=== PATIENT | male | born 1980 | race Hispanic/Latino ===

== ENCOUNTER 2017-11-14 10:37 | Day surgery (SDC) | payer OTHER ==
[~2017-11-14 10:37] MED LIST: ANCEF/STERILE WATER 2 GM/20 ML IV NR
--- NOTE | 2017-11-14 12:20 | Anesthesia Consultation ---
Anesthesia Consult and Med Hx - Airway Anesthetic Teeth Evaluation: Good ROM Head & Neck: Adequate Mental/Hyoid Distance: Adequate Mallampati Class: Class II Intubation Access Assessment: Good - Pulmonary Exam CTA: Yes - Cardiac Exam Cardiac Exam: RRR - Pre-Operative Health Status ASA Pre-Surgery Classification: ASA1 Proposed Anesthetic Plan: General - Central Nervous System Hx Psychiatric Problems: No - Other Systems Hx Alcohol Use: No Hx Substance Use: No Hx Cancer: No
--- NOTE | 2017-11-14 12:20 | Anesthesia Day of Surgery ---
Anesthesia Day of Surgery - Day of Surgery Patient Examined: Yes Patient H&P Reviewed: Yes Patient is NPO: Yes
[2017-11-14] MEDS ORDERED: TORADOL IV PRN (12:21)
[2017-11-14] MEDS ORDERED: ZOFRAN IV PRN (12:21)
[2017-11-14] MEDS ORDERED: DEMEROL IV PRN (12:21)
[2017-11-14] MEDS ORDERED: LACTATED RINGERS 1,000 ML IV SCH (13:00)
[2017-11-14] MEDS ORDERED: SUBLIMAZE ONE (14:10)
[2017-11-14] MEDS ORDERED: XYLOCAINE MPF 2% ONE (14:10)
[2017-11-14] MEDS ORDERED: DIPRIVAN 10 MG/ML IV ONE (14:10)
[2017-11-14] MEDS ORDERED: VERSED ONE (14:10)
[2017-11-14] MEDS ORDERED: MARCAINE 0.25% INFILTRATI ONE ×2 (14:10→14:37)
[2017-11-14] MEDS ORDERED: ZEMURON IV ONE (14:11)
[2017-11-14] MEDS ORDERED: ZOFRAN ONE (14:52)
[2017-11-14] MEDS ORDERED: NEOSTIGMINE ONE (14:52)
[2017-11-14] MEDS ORDERED: ROBINUL ONE ×2 (14:52)
[2017-11-14] MEDS ORDERED: NACL 0.9% IR ONE (14:58)
--- NOTE | 2017-11-14 15:58 | Post Operative Note ---
Pre-op diagnosis: Umbilical hernia Post-op diagnosis: same Findings: Defect 3cmx 3cm with omentum / pre perit fat Procedure: Lap mesh repair umb hernia Anesthesia: GETA Surgeon: ALEC MORA Estimated blood loss: minimal Pathology: list (hernia sac) Specimen disposition: to lab Condition: stable Disposition: PACU
[2017-11-14] MEDS: DILAUDID IV PRN ×4 (16:09→16:46)
--- NOTE | 2017-11-14 17:03 | Post Anesthesia Evaluation ---
- Post Anesthesia Evaluation Patient Participated: Yes Airway Patent: Yes Stable Respiratory Function: Yes Nausea/Vomiting: No Temp > 96.8F: Yes Pain Manageable: Yes Adequeate Hydration: Yes Anesthesia Complications: No Block Receding Appropriately: Not Applicable Patient on Ventilator: No
[2017-11-14] MEDS ORDERED: PERCOCET 5/325 ONE (17:46)
[2017-11-14] MEDS ORDERED: PERCOCET 5/325 PO PRN (17:59)
[2017-11-14] MEDS ORDERED: TRANSDERM-SCOP TD ONE (18:30)
[2017-11-14] MEDS ORDERED: TRANSDERM-SCOP TD SCH (19:00)
[2017-11-14 19:49] VITALS: BP 118/78
--- NOTE | 2017-11-14 22:25 | Operative Report ---
PREOPERATIVE DIAGNOSIS: Umbilical hernia. POSTOPERATIVE DIAGNOSIS: Umbilical hernia. OPERATIVE PROCEDURE: Laparoscopic mesh repair of umbilical hernia. ANESTHESIA: General endotracheal. INDICATIONS: A 37-year-old male patient presenting with a symptomatic partially reducible umbilical hernia. He is brought in for repair. FINDINGS: Defect at the umbilicus measuring 2.5 x 2.5 cm with herniation of omentum that was easily reducible, also herniated, there was a good amount of preperitoneal fat. No inguinal hernia evident. Visualized part of the liver and bowel loops appeared normal. DESCRIPTION OF PROCEDURE: After satisfactory induction of general endotracheal anesthesia, abdomen was prepped and draped. A left upper quadrant incision was made after infiltrating Marcaine as local anesthetic and a Veress needle was inserted in the peritoneal cavity. After adequate carbon dioxide insufflation up to 15 mmHg, 11 mm trocar was inserted; through this, a 5 mm 30-degree angle scope was placed and under direct visualization, left lower quadrant 5 mm and left upper quadrant 5 mm ports were placed. Urachal ligament below was divided and this was the dissection proceeded proximally and the hernial sac was completely removed and this was done through the 11 mm port. The herniated preperitoneal fat was also removed. The intraabdominal pressure was decreased to 10 mmHg. A small incision was made at the lower part of the umbilicus and a suture passer needle was inserted and the defect was approximated with 2 interrupted 0 Vicryl sutures. Hernia repair was done with 10 x 15 cm Proceed mesh. On the polypropylene aspect at either end sutures were placed. The mesh was moistened and inserted through the 11 mm port and at the previously located areas a suture passer needle was inserted and the suture was pulled up and it was tied to the anterior abdominal wall. Then, it was anchored to the fascia with ProTackers. An outer row and inner row ProTackers were placed. There was no redundancy or tension on the mesh. Hemostasis was adequate. Desufflation was done and all the trocars were removed under direct visualization. All the incisions were closed with 4-0 Monocryl. Pressure dressings were placed over the umbilical area and an abdominal binder was placed. There was minimal blood loss. He tolerated the procedure well. JOB# [id number] BUBBAN/NAZARIO
== END 2017-11-14 10:38 | disposition home or self-care (01) ==
LOC: OR 10:37
PROVIDERS: ATTEND Surgery
DX: K42.9 Umbilical hernia without obstruction or gangrene (principal); Z88.2 Allergy status to sulfonamides; Z88.8 Allergy status to other drugs, medicaments and biological substances
CPT/HCPCS: 49652; 88302; C1781; J0690; J1170; J1885; J2250; J2405; J2704; J2710; J3010; J7120